=== PATIENT | male | born 1945 | race Caucasian/White ===

== ENCOUNTER 2019-02-28 15:24 | Emergency (ER) | payer MEDICARE ==
[2019-02-28] MEDS ORDERED: Adacel Vial IM ONE ×2 (15:43→16:58)
[2019-02-28] MEDS ORDERED: BACIGUENT PACKET ONE (15:44)
--- NOTE | 2019-02-28 15:49 | ERPHSYRPT ---
- History of Present Illness Time Seen by Provider: 02/28/19 15:44 Source: patient Exam Limitations: no limitations Physician History: Pt states, he lost his balance and fell on [place], injured his left elbow and knee, denies head or neck, other injury or LOC, no other complaints. He is not sure about his tetanus status. Occurred: this morning Reason for Fall: lost balance Injuries/Pain Location: upper extremity, lower extremity Loss of Consciousness: no loss of consciousness Quality: aching Severity of Pain-Max: mild Severity of Pain-Current: mild Associated Symptoms (Fall): denies symptoms Allergies/Adverse Reactions: Penicillins Allergy (Verified 02/28/19 15:45) Home Medications: Atenolol [Tenormin] 50 mg PO DAILY 02/28/19 [History] Atorvastatin Calcium [Lipitor] 40 mg PO DAILY 02/28/19 [History] Benazepril HCl 10 mg [Lotensin 10 MG] 10 mg PO DAILY 02/28/19 [History] Levetiracetam [Keppra 500 mg ] 500 mg PO BID 02/28/19 [History] Nifedipine [Nifedipine ER] 60 mg PO DAILY 02/28/19 [History] Prednisone 10 mg [Deltasone 10 mg] 10 mg PO DAILY 02/28/19 [History] Tamsulosin HCl 0.4 mg PO DAILY 02/28/19 [History] - Review of Systems Constitutional: No Symptoms Eyes: No Symptoms Ears, Nose, & Throat: No Symptoms Respiratory: No Symptoms Cardiac: No Symptoms Abdominal/Gastrointestinal: No Symptoms Genitourinary Symptoms: No Symptoms Musculoskeletal: Other (abrasions, skin tears to left elbow, forearm and knee.) Skin: No Symptoms Neurological: No Symptoms All Other Systems: Reviewed and Negative - Nursing Vital Signs Nursing Vital Signs: Initial Vital Signs Temperature 98.3 F 02/28/19 15:32 Pulse Rate 74 02/28/19 15:32 Respiratory Rate 16 02/28/19 15:32 Blood Pressure 150/74 02/28/19 15:32 O2 Sat by Pulse Oximetry 96 02/28/19 15:32 Pain Scale Pain Intensity 6 - [place] Coma Score Best Eye Response ([place]): (4) open spontaneously Best Verbal Response ([place]): (5) oriented Best Motor Response ([place]): (6) obeys commands [place] Total: 15 - Physical Exam General Appearance: no apparent distress Head Injury: no evidence of injury Eye Exam: PERRL/EOMI, eyes nml inspection ENT Exam: airway nml, No evidence of ENT injury Neck Exam: supple, trachea midline, full range of motion, normal inspection, No muscle spasm, No pain on movement of neck Respiratory/Chest Exam: normal breath sounds, No chest tenderness, No ecchymosis , No crepitus Cardiovascular Exam: normal heart sounds, regular rate/rhythm, normal peripheral pulses, No murmur, No JVD Gastrointestinal Exam: soft, normal bowel sounds, No tenderness, No distention, No mass, No guarding, No ecchymosis, No rebound Back Exam: normal inspection, No CVA tenderness, No vertebral tenderness Extremity Exam: other (left olecranon and proximal, dorsal forearm: superficial skin tears, slight bleeding at the elbow, no large hematoma, deformity, good ROM , normal distal pulses and sensation. Left knee: small, superficial prepatellar abrasions, no swelling, effusion, pain free motions of the joint, good distal pulses and sensation.) Peripheral Pulses: dorsalis-pedis (R): 2+, dorsalis-pedis (L): 2+ Neurologic Exam: alert, oriented x 3, cooperative, normal mood/affect, sensation nml, No motor deficits Skin Exam: normal color, warm, dry, No petechiae, No diaphoresis SpO2 Interpretation: normal O2 Delivery: Room Air - Course Nursing assessment & vital signs reviewed: Yes - Radiology Exams Left Forearm X-ray Interpretation: Interpreted by me, Negative Ordered Tests: Active Orders 24 hr Category Date Time Status Wound Care STAT Care 02/28/19 15:43 Active FOREARM Stat Exams 02/28/19 15:43 Taken Medication Summary Discontinued Medications Generic Name Dose Route Start Last Admin Trade Name Freq PRN Reason Stop Dose Admin Bacitracin Zinc Confirm 02/28/19 15:44 Baciguent Packet Administered 02/28/19 15:45 Dose 4 gm .ROUTE .STK-MED ONE Diphtheria/Tetanus/Acell Pertussis 0.5 ml 02/28/19 15:43 Adacel Vial IM 02/28/19 15:44 .ONCE ONE - Progress Progress: unchanged Progress Note: 02/28/19 16:22 Pt has been stable, denies severe pain, reviewed his X ray,he is getting discharged after his wounds cleaned, to rest x 2-3 days and follow up with his physician in 2-3 days. Counseled pt/family regarding: diagnosis, need for follow-up, rad results - Departure Departure Disposition: Home Clinical Impression: Elbow contusion Qualifiers: Encounter type: initial encounter Laterality: left Qualified Code(s): S50.02XA - Contusion of left elbow, initial encounter Abrasion forearm Qualifiers: Encounter type: initial encounter Laterality: left Qualified Code(s): S50.812A - Abrasion of left forearm, initial encounter Abrasion of knee, left Qualifiers: Encounter type: initial encounter Qualified Code(s): S80.212A - Abrasion, left knee, initial encounter Condition: Stable Critical Care Time: No Referrals: SHAINA WOODS MD [Primary Care Provider] - Instructions: Wound Care (DC), Skin Abrasions Additional Instructions: Rest with elevated arm x 2-3 days, apply ice or cold compresses to swelling and follow up with your physician in 2-3 days, return if severe pain, swelling or sudden discoloration, coldness,numbness of the fingers!
--- NOTE | 2019-02-28 16:44 | XRAY ---
Indication: Pain. Comparison: None 2 portable views of the left forearm demonstrates mild wrist degenerative changes and tiny anterior elbow soft tissue calcified granuloma. No other bony, articular, or soft tissue abnormalities.
[2019-02-28] MEDS ORDERED: BACIGUENT PACKET TP ONE (16:56)
[2019-02-28 17:19] VITALS: BP 138/52; PULSE 52; O2SAT 100
== END 2019-02-28 17:21 | disposition home or self-care (01) ==
LOC: ED 15:24
DX: S50.02XA Contusion of left elbow, initial encounter (principal); S50.812A Abrasion of left forearm, initial encounter; S80.212A Abrasion, left knee, initial encounter
CPT/HCPCS: 73090; 90471; 90715; 99283; A9270-GY